=== PATIENT | female | born 1990 | race Caucasian/White ===

== ENCOUNTER 2016-12-05 17:20 | Emergency (ER) | payer BC ==
[~2016-12-05] VITALS: Ht 167.6 cm; Wt 69.9 kg
[2016-12-05 17:37] VITALS: BP 134/71
[2016-12-05 17:56] LABS: BASO # 0.1 x10^3/uL (0.0-0.2); BASO % 1 % (0-3); EOS % 2 % (0-3); HEMATOCRIT 39.5 % (36.0-47.0); HEMOGLOBIN 14.1 g/dL (12.0-15.5); LYMPH # 2.4 x10^3/uL (1.0-4.8); LYMPH % 25 % (24-48); MEAN CORPUSCULAR HEMOGLOBIN 31 pg (25-35); MEAN CORPUSCULAR HGB CONC 36 g/dL (31-37); MEAN CORPUSCULAR VOLUME 87 fL (79-100); MONO % 6 % (0-9); NEUT % 66 % (31-73); PLATELET COUNT 267 x10^3/uL (140-400); RED BLOOD COUNT 4.55 x10^6/uL (3.50-5.40); RED CELL DISTRIBUTION WIDTH 12.8 % (11.5-14.5); WHITE BLOOD COUNT 9.7 x10^3/uL (4.0-11.0)
[2016-12-05 17:59] LABS: BILIRUBIN,URINE NEGATIVE (NEG); GLUCOSE,URINE NEGATIVE (NEG); NITRITE,URINE NEGATIVE (NEG); PROTEIN,URINE NEGATIVE (NEG-TRACE); UROBILINOGEN,URINE 0.2 mg/dL (0.2 mg/dL)
[2016-12-05 18:03] LABS: BACTERIA,URINE FEW /HPF (0-FEW); RBC,URINE OCC /HPF (0-2); SQUAMOUS EPITHELIAL CELL,UR MOD /LPF
--- NOTE | 2016-12-05 18:57 | PHYS DOC ---
Past Medical History Past Medical History: No Pertinent History Additional Past Medical Histor: endometriosis Past Surgical History: Other Additional Past Surgical Histo: exploratory lap Alcohol Use: None Drug Use: None Adult General Chief Complaint Chief Complaint: ABDOMINAL PAIN HPI HPI Patient is a 25 year old female who presents with moderate intermittent cramping suprapubic left adnexal pelvic pain approximately 8 weeks vaginal spotting area and no fever. Some mild nausea and vomiting. No dysuria or frequency or flank pain. No fever. Review of Systems Review of Systems Constitutional: Denies fever or chills [] Eyes: Denies change in visual acuity, redness, or eye pain [] HENT: Denies nasal congestion or sore throat [] Respiratory: Denies cough or shortness of breath [] Cardiovascular: No additional information not addressed in HPI [] GI: Denies abdominal pain, nausea, vomiting, bloody stools or diarrhea [] : Denies dysuria or hematuria [] Musculoskeletal: Denies back pain or joint pain [] Integument: Denies rash or skin lesions [] Neurologic: Denies headache, focal weakness or sensory changes [] Endocrine: Denies polyuria or polydipsia [] Allergies Allergies Allergies Coded Allergies Type Severity Reaction Last Updated Verified doxycycline Adverse Reaction Mild nausea 12/05/16 Yes Physical Exam Physical Exam Constitutional: Well developed, well nourished, no acute distress, non-toxic appearance. [] HENT: Normocephalic, atraumatic, bilateral external ears normal, oropharynx moist, no oral exudates, nose normal. [] Eyes: PERRLA, EOMI, conjunctiva normal, no discharge. [] Neck: Normal range of motion, no tenderness, supple, no stridor. [] Cardiovascular:Heart rate regular rhythm, no murmur [] Lungs & Thorax: Bilateral breath sounds clear to auscultation [] Abdomen: Bowel sounds normal, soft, no tenderness, no masses, no pulsatile masses. Except for mild left adnexal tenderness Pelvic exam: External exam was normal speculum exam some scant discharge cervix is closed no blood or active bleeding bimanual mild tenderness in the left adnexal region [] Skin: Warm, dry, no erythema, no rash. [] Back: No tenderness, no CVA tenderness. [] Extremities: No tenderness, no cyanosis, no clubbing, ROM intact, no edema. [] Neurologic: Alert and oriented X 3, normal motor function, normal sensory function, no focal deficits noted. [] Psychologic: Affect normal, judgement normal, mood normal. [] Current Patient Data Vital Signs Vital Signs Date Time Temp Pulse Resp B/P (MAP) Pulse Ox O2 Delivery O2 Flow Rate FiO2 12/05/16 17:37 98.0 79 134/71 (92) 99 18.0 98.0 Lab Values Laboratory Tests Test 12/05/16 16:44 12/05/16 17:35 12/05/16 17:45 POC Urine HCG, Qualitative Hcg positive (Negative) Urine Collection Type Void Urine Color Yellow Urine Clarity Clear Urine pH 7.0 Urine Specific [place] 1.010 Urine Protein Negative mg/dL (NEG-TRACE) Urine Glucose (UA) Negative mg/dL (NEG) Urine Ketones (Stick) 15 mg/dL (NEG) Urine Blood Negative (NEG) Urine Nitrite Negative (NEG) Urine Bilirubin Negative (NEG) Urine Urobilinogen Dipstick 0.2 mg/dL (0.2 mg/dL) Urine Leukocyte Esterase Small (NEG) Urine RBC Occ /HPF (0-2) Urine WBC 1-4 /HPF (0-4) Urine Squamous Epithelial Cells Mod /LPF Urine Bacteria Few /HPF (0-FEW) White Blood Count 9.7 x10^3/uL (4.0-11.0) Red Blood Count 4.55 x10^6/uL (3.50-5.40) Hemoglobin 14.1 g/dL (12.0-15.5) Hematocrit 39.5 % (36.0-47.0) Mean Corpuscular Volume 87 fL (79-100) Mean Corpuscular Hemoglobin 31 pg (25-35) Mean Corpuscular Hemoglobin Concent 36 g/dL (31-37) Red Cell Distribution Width 12.8 % (11.5-14.5) Platelet Count 267 x10^3/uL (140-400) Neutrophils (%) (Auto) 66 % (31-73) Lymphocytes (%) (Auto) 25 % (24-48) Monocytes (%) (Auto) 6 % (0-9) Eosinophils (%) (Auto) 2 % (0-3) Basophils (%) (Auto) 1 % (0-3) Neutrophils # (Auto) 6.4 x10^3uL (1.8-7.7) Lymphocytes # (Auto) 2.4 x10^3/uL (1.0-4.8) Monocytes # (Auto) 0.6 x10^3/uL (0.0-1.1) Eosinophils # (Auto) 0.2 x10^3/uL (0.0-0.7) Basophils # (Auto) 0.1 x10^3/uL (0.0-0.2) Maternal Serum HCG Beta Subunit 01350 mIU/mL (0-5) H Laboratory Tests 12/05/16 17:45 Microbiology 12/05/16 Wet Prep - Final, Complete EKG EKG [] Radiology/Procedures Radiology/Procedures pelvic sono:[IUP seen at almost 6 weeks] Course & Med Decision Making Course & Med Decision Making Pertinent Labs and Imaging studies reviewed. (See chart for details) Reexam at 7:30 PM patient is improved in no distress not having pain. Ultrasound results have resulted with an IUP and I will discuss the results with the patient and the importance for follow-up for next week. HCG was around 11,000 Rh+. [] Dragon Disclaimer Dragon Disclaimer This electronic medical record was generated, in whole or in part, using a voice recognition dictation system. Departure Departure Impression: Primary Impression: Threatened miscarriage in early Disposition: 01 HOME, SELF-CARE Condition: IMPROVED Referrals: SALIMA MEZA (PCP) Patient Instructions: Threatened Miscarriage, [id number] Additional Instructions: Pelvic rest (no sex) . These follow-up with your [facility] sometime next week. SYED BALDERAS MD Dec 05, 2016 18:57
--- NOTE | 2016-12-05 19:34 | RAD ---
Early OB ultrasound History: Pain, vomiting, increased today. Comparison: None. Technique: Transabdominal imaging was performed to evaluate optimally the uterine fundus. Endovaginal imaging was performed to evaluate optimally the lower uterine segment and to increase sensitivity for detection of intrauterine . Findings: Transabdominal imaging: Uterus measures 8.1 cm in length. Saclike fluid collection is present in the endometrial canal. No yolk sac or embryonic pole is identified at this time. Neither ovary is visualized. Endovaginal imaging: Uterus measures 9.2 cm in length. Single intrauterine is identified with gestational sac and yolk sac seen. No embryonic pole is identified at this time, which can be normal this early in . Mean sac diameter is 1.06 cm corresponding to 5 weeks 6 days. Estimated date of delivery based on this measurement is August 01, 2017. Left ovary measures 1.8 x 2.8 x 2.4 cm and is unremarkable. Right ovary measures 3.9 x 4.3 x 3.3 cm and demonstrates 2.8 cm corpus luteum cyst. Both ovaries are without evidence of torsion. Impression: 1. Single intrauterine is identified with gestational sac and yolk sac present. Embryonic pole is not identified, which can be normal this early in . Average ultrasound age is 5 weeks 6 days. Estimated date of delivery is August 01, 2017. Electronically signed by: Noé Keating MD (12/05/2016 7:31 PM) [id number]
== END 2016-12-05 20:07 | disposition home or self-care (01) ==
LOC: ER 17:20
DX: O20.0 Threatened abortion (principal); O21.0 Mild hyperemesis gravidarum; Z3A.01 Less than 8 weeks gestation of pregnancy; Z88.1 Allergy status to other antibiotic agents
CPT/HCPCS: 76801; 76817; 81001; 81025; 84702; 85027; 86901; 87086; 99285; Q0111